=== PATIENT | female | born 1935 | race Caucasian/White ===

== ENCOUNTER 2020-08-29 06:28 | Day surgery (SDC) | payer MEDICARE, BC ==
[~2020-08-29] VITALS: Ht 147.3 cm; Wt 51.8 kg
[~2020-08-29 06:28] MED LIST: ALLEGRA ALLERG180 M1 PO; ALLEGRA ALLERG180 MG PO; ASPI81CH PO; Amoxicillin500 MG PO; Avapro300 MG PO; CALCAVITDA PO; CENTRUM SILVER1 EAC2 PO; CLEM1.34; CODE30 PO; Caffeine200 MG PO; ERGO400 PO; ESTROGEN-METHY1 EAC1; FLUT44OIA; FLUT44OIA INH; GUAI120S1 PO; LEVOFLOXACIN750 MG PO; MAGCHL64ER PO; PREG75 PO; PROG100 PO; TRAZ50 PO; URSODIOL500 MG PO; VITA25000 PO; VITAMIN D400 UNI1 PO; ZINC15 PO
== END 2020-08-29 08:20 | disposition home or self-care (01) ==
LOC: ORSCSDS 06:28
PROVIDERS: Orthopaedic Surgery
PROC: 0LB70ZZ Excision of Right Hand Tendon, Open Approach (ICD-10-PCS; principal; 2020-08-29 07:30)
DX: M67.441 Ganglion, right hand (principal); I10 Essential (primary) hypertension; Z79.899 Other long term (current) drug therapy
CPT/HCPCS: J0690; J2250; J2704; J3010

== ENCOUNTER 2021-11-24 15:59 | Inpatient (IN) | payer MEDICARE, BC ==
[~2021-11-24] VITALS: Ht 144.8 cm; Wt 51.8 kg
[2021-11-24 16:36] LABS: BASOPHILS ABSOLUTE AUTO 0.04 K/mm3 (0.00-0.23); BASOPHILS PERCENT AUTO 0 % (0-2); EOSINOPHILS ABSOLUTE AUTO 0.01 K/mm3 (0.00-0.68); EOSINOPHILS PERCENT AUTO 0 % (0-6); Hemoglobin 11.5 g/dL (11.5-16.0); IMMATURE GRAN ABSOLUTE AUTO 0.11 K/mm3 (0.00-0.10); IMMATURE GRAN PERCENT AUTO 1 % (0-1); LYMPHOCYTES ABSOLUTE AUTO 1.34 K/mm3 (0.84-5.20); LYMPHOCYTES PERCENT AUTO 6 % (21-46); MONOCYTES ABSOLUTE AUTO 1.58 K/mm3 (0.16-1.47); MONOCYTES PERCENT AUTO 7 % (4-13); Mean Corpuscular HGB 23.9 pg (26.0-34.0); Mean Corpuscular HGB Conc 31.1 g/dL (31.5-36.5); Mean Corpuscular Volume 77 fL (80-100); Mean Platelet Volume 10.4 fL (9.1-12.4); NEUTROPHILS PERCENT AUTO 86 % (41-73); Platelet Count 606 K/mm3 (150-400); RDW Standard Deviation 41.2 fL (35.1-46.3); Red Blood Cell Count 4.82 M/mm3 (3.80-5.20); White Blood Cell Count 22.08 K/mm3 (4.00-11.30)
[2021-11-24 16:56] LABS: Alanine Aminotransfer (ALT/SGP 37 U/L (12-78); Albumin, Blood 3.1 g/dL (3.4-5.0); Albumin/Globulin Ratio 0.6 (0.8-1.8); Alk Phos 91 U/L (50-136); Anion Gap 3 mmol/L (6-16); Aspartate Aminotrans (AST/SGOT 31 U/L (12-37); Bilirubin, Total 0.3 mg/dL (0.1-1.0); Blood Urea Nitrogen 18 mg/dL (8-24); Bun/Creatinine Ratio 27.3 (12.0-20.0); CO2, Blood 27 mmol/L (21-32); Calcium, Blood 9.8 mg/dL (8.5-10.1); Chloride, Blood 99 mmol/L (98-108); Creatinine, Blood 0.66 mg/dL (0.40-1.00); Globulin, Blood 4.8 g/dL (2.2-4.0); Glomerular Filtration Rate >60 (60-); Glucose, Blood 169 mg/dL (70-99); Potassium, Blood 4.4 mmol/L (3.5-5.5); Sodium, Blood 129 mmol/L (136-145); Total Protein, Blood 7.9 g/dL (6.4-8.2)
[2021-11-24 17:09] LABS: Source, Urine Voided
[2021-11-24 17:12] LABS: Appearance, Urine Hazy (Clear); Bilirubin, Urine Neg (Neg); Blood, Urine 2+ (Neg); Color, Urine Yellow (P-Yellow); Glucose Qualitative, Urine Neg (Neg); Ketones, Urine Neg (Neg); Leukocyte Esterase, Urine 1+ (Neg); Nitrite, Urine Neg (Neg); Protein, Urine 2+ (Neg); Specific Gravity, Urine 1.015 (1.003-1.022); Urobilinogen, Urine NORM (Normal)
[2021-11-24 17:27] LABS: Bacteria Mod /hpf; Squamous Epithelial Cells Few /hpf (Few)
[2021-11-24] MEDS ORDERED: PREG150 PO (21:38)
[2021-11-24] MEDS ORDERED: MIRALAX17 GM PO (21:39)
[2021-11-25 05:04] LABS: BASOPHILS ABSOLUTE AUTO 0.05 K/mm3 (0.00-0.23); BASOPHILS PERCENT AUTO 0 % (0-2); EOSINOPHILS ABSOLUTE AUTO 0.01 K/mm3 (0.00-0.68); EOSINOPHILS PERCENT AUTO 0 % (0-6); Hematocrit 37.3 % (33.0-51.0); Hemoglobin 11.2 g/dL (11.5-16.0); IMMATURE GRAN ABSOLUTE AUTO 0.13 K/mm3 (0.00-0.10); IMMATURE GRAN PERCENT AUTO 1 % (0-1); LYMPHOCYTES ABSOLUTE AUTO 1.63 K/mm3 (0.84-5.20); LYMPHOCYTES PERCENT AUTO 7 % (21-46); MONOCYTES ABSOLUTE AUTO 1.83 K/mm3 (0.16-1.47); MONOCYTES PERCENT AUTO 8 % (4-13); Mean Corpuscular HGB 23.9 pg (26.0-34.0); Mean Corpuscular Volume 80 fL (80-100); Mean Platelet Volume 10.7 fL (9.1-12.4); NEUTROPHILS ABSOLUTE AUTO 18.88 K/mm3 (1.96-9.15); NEUTROPHILS PERCENT AUTO 84 % (41-73); Platelet Count 590 K/mm3 (150-400); RDW Coefficient Variation 15.2 % (11.7-14.2); RDW Standard Deviation 43.9 fL (35.1-46.3); Red Blood Cell Count 4.68 M/mm3 (3.80-5.20); White Blood Cell Count 22.53 K/mm3 (4.00-11.30)
--- NOTE | 2021-11-25 05:07 | NUR ---
SHIFT SUMMARY PT ER ADMIT THIS SHIFT FOR SBO. WHILE IN ER THERE WERE THREE UNSUCESSFUL ATTEMPTS AT NG TUBE PLACEMENT. PT AT THIS TIME IS REFUSING ADDITIONAL ATTEMPTS FOR NG TUBE PLACEMENT. ABD IS FIRM AND DISTENDED, NONTENDER. BOWEL TONES HYPOACTIVE X4 QUADRANTS. PT HAS HAD INTERMITTENT NAUSEA AND PAIN T/O SHIFT. MEDICATED PER EMAR WITH EFFECT. THERE HAS BEEN NO VOMITTING SINCE ADMISSION. SUGICAL CONSULT IN PLACE. PT NPO AT THIS TIME. VITAL ARE STABLE. BED IN LOWEST POSITION, CALL LIGHT WITHIN REACH.
[2021-11-25 05:08] LABS: International Normalized Ratio 1.14; Prothrombin Time Results 11.9 Sec (9.7-11.5)
[2021-11-25 05:36] LABS: Alanine Aminotransfer (ALT/SGP 32 U/L (12-78); Albumin, Blood 2.8 g/dL (3.4-5.0); Albumin/Globulin Ratio 0.7 (0.8-1.8); Alk Phos 77 U/L (50-136); Anion Gap 6 mmol/L (6-16); Aspartate Aminotrans (AST/SGOT 33 U/L (12-37); Bilirubin, Total 0.4 mg/dL (0.1-1.0); Blood Urea Nitrogen 18 mg/dL (8-24); Bun/Creatinine Ratio 23.1 (12.0-20.0); CO2, Blood 27 mmol/L (21-32); Calcium, Blood 9.7 mg/dL (8.5-10.1); Chloride, Blood 102 mmol/L (98-108); Creatinine, Blood 0.78 mg/dL (0.40-1.00); Globulin, Blood 4.3 g/dL (2.2-4.0); Glomerular Filtration Rate >60 (60-); Glucose, Blood 121 mg/dL (70-99); Magnesium, Blood 2.1 mg/dL (1.6-2.4); Potassium, Blood 4.6 mmol/L (3.5-5.5); Sodium, Blood 135 mmol/L (136-145); Total Protein, Blood 7.1 g/dL (6.4-8.2)
[2021-11-25 10:13] LABS: Influenza A, PCR NEGATIVE (NEGATIVE); Influenza B, PCR NEGATIVE (NEGATIVE); Resp Syncytial Virus, PCR NEGATIVE (NEGATIVE); SARS-Cov-2 (COVID-19) PCR, MMC NEGATIVE (NEGATIVE)
--- NOTE | 2021-11-25 12:41 | NUR ---
11/25/21 1241 Evette Jiang TAP BLOCK ADMINISTERED BY INTRAOPERATIVELY. PATIENT TOLERATED WELL. SEE ANESTHESIA NOTES
--- NOTE | 2021-11-25 18:52 | NUR ---
SHIFT SUMMARY A&OX4, VSS/RA, BIOX ON, S/P SHYAM COLECTOMY, RIDGE WNL/CDI, PAIN MANAGED WITH 12.5 MG FENT, LR @ 100 MLS/HR, DENIES N&V, AUNDREA ICE CHIPS. PIERRE PATENT & DRAINING YELLOW URINE, STAT LOCK ON, OFF FLOOR. REPOSITIONS WELL WITH ASSIST. WILL REPORT TO ONCOMING NOC RN.
[2021-11-26 04:29] LABS: Hematocrit 35.9 % (33.0-51.0); Hemoglobin 10.6 g/dL (11.5-16.0); Mean Corpuscular HGB 23.8 pg (26.0-34.0); Mean Corpuscular HGB Conc 29.5 g/dL (31.5-36.5); Mean Corpuscular Volume 81 fL (80-100); Mean Platelet Volume 10.2 fL (9.1-12.4); Platelet Count 502 K/mm3 (150-400); RDW Coefficient Variation 15.3 % (11.7-14.2); RDW Standard Deviation 44.6 fL (35.1-46.3); Red Blood Cell Count 4.45 M/mm3 (3.80-5.20); White Blood Cell Count 24.53 K/mm3 (4.00-11.30)
[2021-11-26 04:52] LABS: BAND PERCENT MAN 13 % (0-8); BASOPHILS PERCENT MAN 0 % (0-2); EOSINOPHILS PERCENT MAN 0 % (0-6); LYMPHOCYTES ABSOLUTE MAN 0.24 K/mm3 (0.84-5.20); LYMPHOCYTES PERCENT MAN 1 % (21-46); MONOCYTES ABSOLUTE MAN 1.22 K/mm3 (0.16-1.47); MONOCYTES PERCENT MAN 5 % (4-13); NEUTROPHILS ABSOLUTE MAN 23.05 K/mm3 (1.96-9.15); SEG NEUTROPHILS PERCENT MAN 81 % (41-73); TOTAL CELLS COUNTED 100
[2021-11-26 04:58] LABS: Albumin, Blood 2.3 g/dL (3.4-5.0); Anion Gap 7 mmol/L (6-16); Blood Urea Nitrogen 26 mg/dL (8-24); Bun/Creatinine Ratio 26.1 (12.0-20.0); CO2, Blood 24 mmol/L (21-32); Calcium, Blood 8.6 mg/dL (8.5-10.1); Chloride, Blood 109 mmol/L (98-108); Glomerular Filtration Rate 53 (60-); Glucose, Blood 152 mg/dL (70-99); Phosphorus, Blood 4.6 mg/dL (2.5-4.9); Potassium, Blood 4.9 mmol/L (3.5-5.5); Sodium, Blood 140 mmol/L (136-145)
--- NOTE | 2021-11-26 06:21 | NUR ---
SHIFT SUMMARY A/OX 2-3. POD1 SHYAM COLECTOMY, RIDGE DRESSING INTACT, 2 SMALL AMOUNTS OF RED DRIED DRAINAGE ON MIDLINE, BOWEL TONES ACTIVE. VITAL SIGNS STABLE. PIERRE IN PLACE, DRAINING TO GRAVITY. TOLERATING ICE CHIPS- NO N/V. CONT BIOX IN PLACE. INCREASE IN RESPIRATIONS THIS SHIFT, PT ABLE TO COUGH UP SOME SECRETIONS AND BREATHING APPEARED TO IMPROVE- RESPIRATIONS 18-20, ON 2L O2 AT 99%. IV PAIN MEDICATION GIVEN. WILL CONTINIUE TO MONITOR AND REPORT ONCOMING RN.
--- NOTE | 2021-11-26 17:53 | NUR ---
SHIFT SUMMARY A&O X3, FORGETS WHERE SHE IS OFTEN. VSS, ON 2L NC. MIDLINE ABD INCISION W/ RIDGE IN PLACE, C/D/I. PT HAS STRUGGLED W/ PAIN MANAGMENT, REPORTS HER PAIN TO BE 2-3/10 T/O SHIFT AND REQUESTS PAIN MEDICATION CONSISTENTLY. PIERRE REMAINS IN PLACE D/T PATIENT REPORTING BEING "TOO PAINFUL TO MOVE". ENCOURAGED MOBILITY T/O SHIFT, PATIENT DECLINES UNTIL THERAPY WORKS W/ HER. PATIENT APPEARS TO BE FIXATED ON HER PAIN MEDICATION "DUE TIMES" SHE IS MAKING LISTS AND CONTINTUES TO SAY HER MEDICATION IS DUE AND SHE NEEDS IT, WHILE SHE IS READING HER LIST OF TIMES SHE HAS RECIEVED MEDICATIONS. LUNGS CONTINUE TO SOUND COURSE T/O SHIFT. ENCOURAGED TO DEEP BREATH, COUGH, & USE IS. FAMILY AT BEDSIDE T/O AFTERNOON, REPORTS PT TO BE "LOOPY" & "NOT HER NORMAL SELF". CONTINUE TO EDUCATE ON PAIN MEDICATION. WILL REPORT TO ONCOMING RN.
[2021-11-27 04:20] LABS: Hematocrit 30.9 % (33.0-51.0); Hemoglobin 9.1 g/dL (11.5-16.0); Mean Corpuscular HGB 23.7 pg (26.0-34.0); Mean Corpuscular HGB Conc 29.4 g/dL (31.5-36.5); Mean Corpuscular Volume 81 fL (80-100); Mean Platelet Volume 10.3 fL (9.1-12.4); Platelet Count 347 K/mm3 (150-400); RDW Coefficient Variation 15.3 % (11.7-14.2); RDW Standard Deviation 44.6 fL (35.1-46.3); Red Blood Cell Count 3.84 M/mm3 (3.80-5.20); White Blood Cell Count 17.38 K/mm3 (4.00-11.30)
[2021-11-27 04:41] LABS: Albumin, Blood 2.2 g/dL (3.4-5.0); Anion Gap 4 mmol/L (6-16); Blood Urea Nitrogen 28 mg/dL (8-24); Bun/Creatinine Ratio 35.9 (12.0-20.0); CO2, Blood 26 mmol/L (21-32); Calcium, Blood 9.3 mg/dL (8.5-10.1); Chloride, Blood 114 mmol/L (98-108); Creatinine, Blood 0.78 mg/dL (0.40-1.00); Glomerular Filtration Rate >60 (60-); Glucose, Blood 93 mg/dL (70-99); Phosphorus, Blood 3.6 mg/dL (2.5-4.9); Potassium, Blood 4.5 mmol/L (3.5-5.5); Sodium, Blood 144 mmol/L (136-145)
--- NOTE | 2021-11-27 06:14 | NUR ---
SHIFT SUMMARY A/O X3-4, POD2 HEMICOLECTOMY. RIDGE MIDLINE IN PLACE, 2 SPOTS OF DRIED RED DRAINAGE, INTACT. MINIMAL ABDOMINAL DISTENTION. PAIN REPORTED AT BEGINING OF SHIFT 11/01, MEDICATED WITH PO PAIN MEDICATION AND PATIENT RESTED WELL THROUGHOUT THE NIGHT. VITAL SIGNS STABLE. APPEARS MORE ALERT THIS SHIFT, LESS CONFUSION. REPOSITIONED Q2H. PIERRE DRAINING TO GRAVITY. TOLERATING SIPS AND CHIPS, NO REPORTS OF N/V. NO FLATUS OR BOWEL MOVEMENT AT THIS TIME. WILL CONTINUE TO MONITOR AND REPORT TO ONCOMING RN.
--- NOTE | 2021-11-27 16:07 | NUR ---
SHIFT SUMMARY PT POD #2 FOR HEMICOLECTOMY. RIDGE DRESSING AT MIDLINE WITH MINIMAL DRAINAGE, DRY AND INTACT. NO GAS OR BM THIS SHIFT. PT SLEPT WELL LAST NIGHT AND HAS BEEN VERY SLEEPY TODAY. SHE WAS ABLE TO WORK WITH PHYSICAL THERAPY AND GOT UP TO A RECLINER BUT HAS BEEN SLEEPING THE MAJORITY OF THE SHIFT. SHE IS AROUSABLE BUT FAIRLY DISORIENTED WHEN SHE WAKES UP. SHE REMAINS ON 2 LITERS OF O2. VSS.
[2021-11-28 05:32] LABS: BASOPHILS ABSOLUTE AUTO 0.02 K/mm3 (0.00-0.23); BASOPHILS PERCENT AUTO 0 % (0-2); EOSINOPHILS PERCENT AUTO 0 % (0-6); Hematocrit 32.3 % (33.0-51.0); Hemoglobin 9.3 g/dL (11.5-16.0); IMMATURE GRAN ABSOLUTE AUTO 0.06 K/mm3 (0.00-0.10); IMMATURE GRAN PERCENT AUTO 1 % (0-1); LYMPHOCYTES ABSOLUTE AUTO 0.87 K/mm3 (0.84-5.20); LYMPHOCYTES PERCENT AUTO 7 % (21-46); MONOCYTES ABSOLUTE AUTO 0.91 K/mm3 (0.16-1.47); MONOCYTES PERCENT AUTO 7 % (4-13); Mean Corpuscular HGB 23.5 pg (26.0-34.0); Mean Corpuscular HGB Conc 28.8 g/dL (31.5-36.5); Mean Corpuscular Volume 82 fL (80-100); NEUTROPHILS ABSOLUTE AUTO 11.24 K/mm3 (1.96-9.15); NEUTROPHILS PERCENT AUTO 86 % (41-73); Platelet Count 341 K/mm3 (150-400); RDW Coefficient Variation 15.4 % (11.7-14.2); RDW Standard Deviation 46.4 fL (35.1-46.3); Red Blood Cell Count 3.95 M/mm3 (3.80-5.20)
[2021-11-28 06:02] LABS: Anion Gap 5 mmol/L (6-16); Blood Urea Nitrogen 28 mg/dL (8-24); Bun/Creatinine Ratio 36.4 (12.0-20.0); CO2, Blood 26 mmol/L (21-32); Calcium, Blood 9.5 mg/dL (8.5-10.1); Chloride, Blood 117 mmol/L (98-108); Creatinine, Blood 0.77 mg/dL (0.40-1.00); Glomerular Filtration Rate >60 (60-); Glucose, Blood 79 mg/dL (70-99); Magnesium, Blood 2.2 mg/dL (1.6-2.4); Phosphorus, Blood 3.6 mg/dL (2.5-4.9); Potassium, Blood 4.5 mmol/L (3.5-5.5); Sodium, Blood 148 mmol/L (136-145)
--- NOTE | 2021-11-28 06:45 | NUR ---
SUMMARY NO NEW ISSUES NOTED. PT PAIN MANAGED WELL PER EMAR. PT REMAINS PLESANTLY CONFUSED AND COOPERATIVE. PT HAS SLEPT T/OUT SHIFT. PT CURRENTLY SLEEPING IN NO DISTRESS.
--- NOTE | 2021-11-28 14:38 | NUR ---
CALLED DR. ENRIQUEZ ABOUT THE PATIENT. STATING THAT SHE IS COUGHING UP THICK WHITE/CLEAR SPUTUM AND SEEMS SHORT OF BREATH. PATIENT CAN BARELY USE THE FLUTTER VALVE LET ALONE THE INCENTIVE SPIROMETER. DR. ENRIQUEZ ORDERED RT TREATMENT FOR HER. RT IS IN THE ROOM NOW TO GIVE TREATMENT. BIOX IS IN PLACE. CALL LIGHT WITHIN REACH.
--- NOTE | 2021-11-28 17:00 | NUR ---
Pt resting in recliner chair upon arrival. This RN accompanied by student nurse Shena. Pt is pleasantly confused and appears lethargic. Pt's Shaun and Pt's son at bedside. 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 Pt drifts off to sleep and conversation continued with family. Shaun reports just Pt and himself at home but have adequate support with son and daughter in law. Family reports knowing about the cancer for a few weeks now and Pt's plan is to have cancer treated if treatment is available. Continued therapeutic listening. Engaged in therapeutic discussion regarding Pt's POLST on file vs current code status. Current code status is Full Code and Pt's wishes on POLST are No CPR and ok with intubation. Educated on life sustaining treatment including risk factors and implications of CPR. After further discussion spouse and son report they would like to follow wishes on Pt's POLST. Family expresses appreciation and report no other concerns at this time. Spoke with Dr Moody and discussed case. Placed order for Pt's code status to be limited with providing intubationn only per V/O from Dr Moody. This aligns with Pt's wishes on POLST. Palliative Care will remain available.
[2021-11-29 04:47] LABS: Hematocrit 32.9 % (33.0-51.0); Hemoglobin 9.4 g/dL (11.5-16.0); Mean Corpuscular HGB 23.6 pg (26.0-34.0); Mean Corpuscular HGB Conc 28.6 g/dL (31.5-36.5); Mean Corpuscular Volume 83 fL (80-100); Mean Platelet Volume 10.8 fL (9.1-12.4); Platelet Count 303 K/mm3 (150-400); RDW Coefficient Variation 15.6 % (11.7-14.2); RDW Standard Deviation 46.9 fL (35.1-46.3); Red Blood Cell Count 3.99 M/mm3 (3.80-5.20)
[2021-11-29 05:18] LABS: Albumin, Blood 2.2 g/dL (3.4-5.0); Anion Gap 6 mmol/L (6-16); Blood Urea Nitrogen 25 mg/dL (8-24); Bun/Creatinine Ratio 36.1 (12.0-20.0); CO2, Blood 27 mmol/L (21-32); Chloride, Blood 111 mmol/L (98-108); Creatinine, Blood 0.69 mg/dL (0.40-1.00); Glomerular Filtration Rate >60 (60-); Glucose, Blood 180 mg/dL (70-99); Phosphorus, Blood 2.5 mg/dL (2.5-4.9); Potassium, Blood 3.6 mmol/L (3.5-5.5); Sodium, Blood 144 mmol/L (136-145)
--- NOTE | 2021-11-29 09:17 | NUR ---
CALLED DR. ENRIQUEZ ABOUT PATIENT SAYING THAT THERE ARE CONCERNS OF HER NOT BEING ABLE TO BREATH WELL. ALSO TALKED WITH RESPIRATORY THERAPY THEY AGREED THAT SHE LOOKS WORSE THAN YESTERDAY. PATIENT CAN BARELY STAY AWAKE TO ANSWER YES/NO QUESTIONS. PATIENT DID STATE THAT SHE IS HAVING A HARD TIME BREATHING AND "DOESN'T FEEL GOOD". DR. ENRIQUEZ SAID THAT SHE WOULD ORDER LASIX AND WILL COME SEE THE PATIENT. PALLIATIVE CARE HAS BEEN NOTIFIED WELL. PATIENT IS LAYING IN BED AND IS SWEATY ON THE FACE. CALL LIGHT WITHIN REACH.
--- NOTE | 2021-11-29 11:29 | NUR ---
Received referral from nurse home care companion (Marybel Lucas) on 11/26/2021. Patient is to discharge with orders for home health and elected [facility]. Met with patient and patient's to further discuss the above. Patient and are agreeable to the above. Discussed homebound status definition with patient and . Patient and verbalized understanding. Discussed what home health is vs what it is not (in home caregivers/housekeeping). Patient and verbalized understanding. Discussed the next steps in the process of an initial assessment to determine frequency of visits. Again patient and verbalized understanding. Offered a chance for patient and to ask questions regarding the above of which there were none. At this time patient has no discharge orders entered. Will continue to monitor and follow for discharge. Tari Mera Referral Liaison
--- NOTE | 2021-11-29 12:33 | NUR ---
Pt resting in bed upon arrival. Assisted CLEANING AND WASHING EQUIPMENT OPERATOR with scooting Pt up in bed. Pt drifts off to sleep quickly. Pt appears comfortable with no S/S of distress at this time. Pt appears weak and frail. Pt's Shaun at bedside. Offered supportive visit for Shaun and therapeutic listening. Listened as Shaun report being hopefull but understands that Pt may not do well. Validated concerns and continued therapeutic listening. Shaun expresses appreciation and is agreeable for continued supportive visits. Spoke with Primary RN Tatiana, discussed case and concerns. Spoke with Dr Moody and discussed case. Palliative Care will remain available.
--- NOTE | 2021-11-29 19:05 | NUR ---
DIET ORDER CONFIRMED WITH DR. CHERRY THAT [facility] SOFT DIET IS OK FOR THIS PATIENT.
--- NOTE | 2021-11-29 19:06 | NUR ---
SHIFT SUMMARY POD4 R SHYAM COLECTOMY, A/O TO SELF, ANSWERS QUESTIONS APPROPRIATELY, FAMILY AT BEDSIDE T/O THE SHIFT, POWERGLIDE INSERTED FOR PARENTAL NUTRITION WHICH WAS ALSO STARTED THIS SHIFT TO SUPPLEMENT NUTRIENT NEEDS. PT ABLE TO ROLL DURING ATTENDS CHANGES BUT IS VERY WEAK, OCCASIONAL COUGH. ST PERFORMED SWALLOW EVALUATION AND APPROVED HER FOR [facility] SOFT WHICH WAS CONFIRMED WITH GENERAL SURGERY. NO ACUTE EVENTS THIS SHIFT, CALL LIGHT IN REACH, REPORT GIVEN TO VALERIE RN.
[2021-11-30 04:10] LABS: BASOPHILS ABSOLUTE AUTO 0.01 K/mm3 (0.00-0.23); BASOPHILS PERCENT AUTO 0 % (0-2); EOSINOPHILS ABSOLUTE AUTO 0.09 K/mm3 (0.00-0.68); EOSINOPHILS PERCENT AUTO 1 % (0-6); Hematocrit 29.2 % (33.0-51.0); Hemoglobin 8.5 g/dL (11.5-16.0); IMMATURE GRAN ABSOLUTE AUTO 0.04 K/mm3 (0.00-0.10); IMMATURE GRAN PERCENT AUTO 0 % (0-1); LYMPHOCYTES ABSOLUTE AUTO 0.91 K/mm3 (0.84-5.20); LYMPHOCYTES PERCENT AUTO 9 % (21-46); MONOCYTES ABSOLUTE AUTO 1.01 K/mm3 (0.16-1.47); MONOCYTES PERCENT AUTO 10 % (4-13); Mean Corpuscular HGB 23.2 pg (26.0-34.0); Mean Corpuscular HGB Conc 29.1 g/dL (31.5-36.5); Mean Corpuscular Volume 80 fL (80-100); Mean Platelet Volume 10.7 fL (9.1-12.4); NEUTROPHILS ABSOLUTE AUTO 7.85 K/mm3 (1.96-9.15); NEUTROPHILS PERCENT AUTO 79 % (41-73); Platelet Count 244 K/mm3 (150-400); RDW Coefficient Variation 15.6 % (11.7-14.2); RDW Standard Deviation 45.3 fL (35.1-46.3); Red Blood Cell Count 3.66 M/mm3 (3.80-5.20); White Blood Cell Count 9.91 K/mm3 (4.00-11.30)
[2021-11-30 04:32] LABS: Alanine Aminotransfer (ALT/SGP 47 U/L (12-78); Albumin/Globulin Ratio 0.6 (0.8-1.8); Alk Phos 69 U/L (50-136); Anion Gap 4 mmol/L (6-16); Aspartate Aminotrans (AST/SGOT 50 U/L (12-37); Bilirubin, Total 0.3 mg/dL (0.1-1.0); Blood Urea Nitrogen 22 mg/dL (8-24); Bun/Creatinine Ratio 34.3 (12.0-20.0); CO2, Blood 31 mmol/L (21-32); Calcium, Blood 8.6 mg/dL (8.5-10.1); Chloride, Blood 108 mmol/L (98-108); Creatinine, Blood 0.64 mg/dL (0.40-1.00); Globulin, Blood 3.2 g/dL (2.2-4.0); Glomerular Filtration Rate >60 (60-); Glucose, Blood 132 mg/dL (70-99); Magnesium, Blood 1.6 mg/dL (1.6-2.4); Phosphorus, Blood 2.6 mg/dL (2.5-4.9); Potassium, Blood 3.8 mmol/L (3.5-5.5); Sodium, Blood 143 mmol/L (136-145); Total Protein, Blood 5.2 g/dL (6.4-8.2); Triglycerides 106 mg/dL (30-160)
--- NOTE | 2021-11-30 04:38 | NUR ---
SUMMARY NO NEW ISSUES NOTED. PT HAS SLEPT T/OUT SHIFT. PT S BREATHING EASIER THIS SHIFT. PT IS MORE ALERT. PT CURRENTLY SLEEPING AND IN NO DISTRES. CALL LIGHT IN REACH.
--- NOTE | 2021-11-30 18:52 | NUR ---
SHIFT SUMMARY 5 DAYS S/P HEMICOLECTOMY. A&OX4. VSS. POWERGLIDE IRVIN INFUSING TPN 75ML/HR. DIET ADVANCED TO SMALL BITES PER ST; TOLERATING WELL, INTAKE HAS IMPROVED. BM X3 TODAY; SMALL, BROWN AND FORMED. BEDSIDE COMMODE AND WEARING BRIEFS. TRANSFERS WITH FWW AND PIVOT TO BEDSIDE. RIDGE DRESSING REMOVED AND CHANGED TO GAUZE AND TEGEDERM IN MORNING SHIFT CHANGED DUE TO EXCESS DRAINAGE; CHANGED 4X TOTAL T/O SHIFT. PAIN CONTROLLED WITH TRAMADOL 25MG GIVEN ONCE DURING SHIFT. 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 FAMILY AWAITING RESULTS OF ABD MASS/US. AND DIL AT BEDSIDE MOST OF SHIFT. MEPILEX ON COCCYX, CHANGED ONCE; SKIN RED AND FRAGIL; REPOSITIONED SIDE/SIDE, UP IN CHAIR. OXYGEN VIA NC 2L/MIN. BILAT SCDS ON. REPORT PROVIDED TO KALI HERNANDEZ.
--- NOTE | 2021-11-30 19:29 | NUR ---
PT SAT ON SIDE OF BED FOR 75 MINUTES.
--- NOTE | 2021-12-01 07:35 | NUR ---
SHIFT SUMMARY PT APPEARS TO BE MORE ALERT AND STEADY LAST NIGHT. VSS. PT REPORTS ABD PAIN, PAIN MEDICATED WTIH ULTRAM X2 T/O SHIFT, REPORTS SOME RELIEF. PT TOLERATION PO INTAKE, DENIES N/V. PT TAKES MED WHOLE. VOIDS ADEQUATELY, NO BM. PT RECIEVED ABX. TPN FOR NUTRITION. PT AMBULATES/ STAND AND PVOT IN BSC WITH FWW AND GB. CALL LIGHT WITHIN REACH. REPORT GIVENT TO DAY SHIFT NURSE.
--- NOTE | 2021-12-01 14:24 | NUR ---
Visit to pt and family. RN in room when I arrived repositioning pt. Pt first requested pillows on either side of her hips to float coccyx and then requested assist with using the commode. Pt is awake, alert, unsure of orientation as she was not verbalizing very much at all. She did shake her head no to if she had pain currently. She appears with nonverbal indicators to be having some discomfort with furrowed brow and grimacing, increased with me and DIL repositioning her and placing pillows under hips. Reported on visit and need for BSC use to nursing. Pal Care to cont to follow. Family reports that she has improved overall in past couple days. Pt appears very frail at this time.
--- NOTE | 2021-12-01 18:07 | NUR ---
SHIFT SUMMA[place] POD6 R SHYAM COLECTOMY, A/OX4 THOUGH SOMETIMES IS SLOW TO RESPONT/PUT WORDS TOGETHER, ABLE TO MAKE NEEDS KNOWN, TOLERATING PO, FAMILY HELPS WITH MEALS, TPN SUPPLEMENTING NUTRIENT NEEDS. ABD DRESSING CHANGED THIS SHIFT BY THIS RN WHILE DR DUMONT WAS AT BEDSIDE, SOME SEROUS DRAINAGE SEEPING OUT OF INCISION. DRESSING NOW HAS MODERATE AMOUNT OF DRAINAGE NOTED ON IT AND WILL BE CHANGED OUT AGAIN NEEDED, ABD BINDER IN PLACE TO HELP KEEP DRESSING IN PLACE. PT SPENT ABOUT HALF THE DAY IN THE CHAIR ALTERNATING BED TO CHAIR. NO ACUTE EVENTS THIS SHIFT, CALL LIGHT IN REACH, WILL CTM AND REPORT TO NOC RN.
[2021-12-02 06:14] LABS: BASOPHILS ABSOLUTE AUTO 0.02 K/mm3 (0.00-0.23); BASOPHILS PERCENT AUTO 0 % (0-2); EOSINOPHILS ABSOLUTE AUTO 0.25 K/mm3 (0.00-0.68); EOSINOPHILS PERCENT AUTO 2 % (0-6); Hematocrit 31.1 % (33.0-51.0); Hemoglobin 9.3 g/dL (11.5-16.0); IMMATURE GRAN ABSOLUTE AUTO 0.07 K/mm3 (0.00-0.10); IMMATURE GRAN PERCENT AUTO 1 % (0-1); LYMPHOCYTES ABSOLUTE AUTO 1.05 K/mm3 (0.84-5.20); LYMPHOCYTES PERCENT AUTO 8 % (21-46); MONOCYTES ABSOLUTE AUTO 1.19 K/mm3 (0.16-1.47); MONOCYTES PERCENT AUTO 9 % (4-13); Mean Corpuscular HGB 23.3 pg (26.0-34.0); Mean Corpuscular HGB Conc 29.9 g/dL (31.5-36.5); Mean Corpuscular Volume 78 fL (80-100); Mean Platelet Volume 11.3 fL (9.1-12.4); NEUTROPHILS PERCENT AUTO 80 % (41-73); Platelet Count 250 K/mm3 (150-400); RDW Coefficient Variation 15.8 % (11.7-14.2); RDW Standard Deviation 44.7 fL (35.1-46.3); White Blood Cell Count 12.98 K/mm3 (4.00-11.30)
[2021-12-02 06:31] LABS: Alanine Aminotransfer (ALT/SGP 55 U/L (12-78); Albumin, Blood 2.1 g/dL (3.4-5.0); Albumin/Globulin Ratio 0.6 (0.8-1.8); Alk Phos 80 U/L (50-136); Anion Gap 1 mmol/L (6-16); Aspartate Aminotrans (AST/SGOT 60 U/L (12-37); Bilirubin, Total 0.2 mg/dL (0.1-1.0); Blood Urea Nitrogen 21 mg/dL (8-24); Bun/Creatinine Ratio 41.3 (12.0-20.0); CO2, Blood 37 mmol/L (21-32); Calcium, Blood 8.7 mg/dL (8.5-10.1); Chloride, Blood 103 mmol/L (98-108); Creatinine, Blood 0.51 mg/dL (0.40-1.00); Globulin, Blood 3.3 g/dL (2.2-4.0); Glomerular Filtration Rate >60 (60-); Glucose, Blood 111 mg/dL (70-99); Magnesium, Blood 1.8 mg/dL (1.6-2.4); Potassium, Blood 4.7 mmol/L (3.5-5.5); Sodium, Blood 141 mmol/L (136-145); Total Protein, Blood 5.4 g/dL (6.4-8.2)
--- NOTE | 2021-12-02 17:06 | NUR ---
SHIFT SUMMARY POD 7 R SHYAM COLECTOMY. PT HAS BEEN PASSING FLATUS AND HAVING BOWEL MOVEMENTS. DRESSING REMAINS CDI, BINDER IN PLACE FOR COMFORT. PT HAS BEEN UP TO BSC FREQUENTLY T/O SHIFT. 1 MINIMAL ASSIST AT THIS TIME. SHE REPORTS FEELING MUCH BETTER THIS SHIFT. ON ROOM AIR WHILE AWAKE, 2L WHILE ASLEEP, SATS REMAIN GREATER THAN 92%.
[2021-12-03 04:16] LABS: BASOPHILS ABSOLUTE AUTO 0.06 K/mm3 (0.00-0.23); BASOPHILS PERCENT AUTO 1 % (0-2); EOSINOPHILS ABSOLUTE AUTO 0.29 K/mm3 (0.00-0.68); EOSINOPHILS PERCENT AUTO 2 % (0-6); Hematocrit 29.4 % (33.0-51.0); Hemoglobin 8.9 g/dL (11.5-16.0); IMMATURE GRAN ABSOLUTE AUTO 0.12 K/mm3 (0.00-0.10); IMMATURE GRAN PERCENT AUTO 1 % (0-1); LYMPHOCYTES ABSOLUTE AUTO 1.44 K/mm3 (0.84-5.20); LYMPHOCYTES PERCENT AUTO 11 % (21-46); MONOCYTES ABSOLUTE AUTO 1.16 K/mm3 (0.16-1.47); MONOCYTES PERCENT AUTO 9 % (4-13); Mean Corpuscular HGB Conc 30.3 g/dL (31.5-36.5); Mean Corpuscular Volume 76 fL (80-100); Mean Platelet Volume 11.4 fL (9.1-12.4); NEUTROPHILS ABSOLUTE AUTO 9.71 K/mm3 (1.96-9.15); NEUTROPHILS PERCENT AUTO 76 % (41-73); Platelet Count 236 K/mm3 (150-400); RDW Standard Deviation 43.4 fL (35.1-46.3); Red Blood Cell Count 3.87 M/mm3 (3.80-5.20); White Blood Cell Count 12.78 K/mm3 (4.00-11.30)
[2021-12-03 04:19] LABS: Alanine Aminotransfer (ALT/SGP 56 U/L (12-78); Albumin/Globulin Ratio 0.6 (0.8-1.8); Alk Phos 82 U/L (50-136); Anion Gap 4 mmol/L (6-16); Aspartate Aminotrans (AST/SGOT 56 U/L (12-37); Bilirubin, Total 0.3 mg/dL (0.1-1.0); Blood Urea Nitrogen 22 mg/dL (8-24); Bun/Creatinine Ratio 39.4 (12.0-20.0); CO2, Blood 32 mmol/L (21-32); Calcium, Blood 8.9 mg/dL (8.5-10.1); Chloride, Blood 104 mmol/L (98-108); Creatinine, Blood 0.56 mg/dL (0.40-1.00); Globulin, Blood 3.2 g/dL (2.2-4.0); Glomerular Filtration Rate >60 (60-); Glucose, Blood 115 mg/dL (70-99); Magnesium, Blood 1.8 mg/dL (1.6-2.4); Potassium, Blood 4.7 mmol/L (3.5-5.5); Sodium, Blood 140 mmol/L (136-145); Total Protein, Blood 5.2 g/dL (6.4-8.2)
--- NOTE | 2021-12-03 05:42 | NUR ---
SHIFT SUMMARY NO ACUTE CHANGES OVERNIGHT. TPN INFUSING. PT'S LUNGS SOUND COARSE BUT IMPROVED. INTERMITTENTLY COUGHING (DRY) ROBITUSSIN GIVEN LAST NIGHT. VOIDING ADEQUATELY. PT REPORTS TAILBONE PAIN. MEPLEX IN PLACED AND PAIN MANAGED WITH TYLENOL ONLY. REPOSITIONED Q2. ABX ADMINISTERED. AMBULATES IN THE BSC. S/P HEMICOLECTOMY WITH MIDLINE INCISION WITH ABD PAD AND TAPE. APPEARS TO HAVE MOD SS DRAINAGE. DRESSING CHANGED. EDEMA NOTED ON BILATERAL LOW EXT, NON PITTING. SCD IN PLACE. CALL LIGHT WITHIN REACH WILL PROVIDE REPORT TO ONCOMING NURSE
--- NOTE | 2021-12-03 17:02 | NUR ---
SHIFT SUMMARY: Patient has been tolerating regular diet well. Per dietitian PPN rate decreased. Has sat up in chair for all meals and up to BSC frequently. She requries one to two person assist for transfers. Pain has been well managed with Tylenol. Passing gas and having BMs. O2 weaned during day.
--- NOTE | 2021-12-04 06:30 | NUR ---
SHIFT SUMMARY NO ACUTE CHANGES TONIGHT EXCEPT FOR INCREASING EDEMA ON HER FEET. PITTING +2. PT ALSO HAS (CHRONIC) PRODUCTIVE COUGH, ROBITUSSIN GIVEN X2. LUNGS. LUNGS SOUND CLEAR. NO CRACKLES NOTED. PT DENIES SOB, O2 SATS OVER 95%. PT ON ROOM AIR ALL NIGHT. PT ALSO DENIES CHEST PAIN AND DIZZINESS. AMBULATES IN THE BSC, ATTENDS IN PLACE DUE TO FREQUENT URINATION AT NIGHT WHICH EXHAUST HER. PT ALSO APPEARS TO HAVE MORE JITTERY HANDS LAST NIGHT. PT'S DTR STATED THAT SHE GETS JITTERY WHEN SHE'S TIRED. SCD'S IN PLACE. BLE ELEVATED AT NIGHT. TPN STILL INFUSING. CALL LIGHT WITHIN REACH. WILL PROVIDE REPORT TO ONCOMING NURSE.
--- NOTE | 2021-12-04 17:40 | NUR ---
SHIFT SUMMARY: PT WORKED WITH PHYSICAL THERAPY AND IS EXPECTED TO DISCHARGE TO A SHELTER FACILITY TOMORROW. PT AMBULATED WELL WITH GOOD TOLERANCE. PT STILL HAS PPN RUNNING AND HER APPETITE HAS INCREASED. EATING WELL. SHE EXPRESSED INCREASED PAIN IN HER R ARM AND THE LOWER L SIDE OF HER BACK, NOTED. PAIN WAS MANAGED WITH TYLENOL. SEVERAL BMs.
--- NOTE | 2021-12-05 05:37 | NUR ---
BULK PICKER SUMMARY NO ACUTE CHANGES THIS SHIFT. PT AAOX4 AND PLEASANT. UP TO BATHROOM WITH 1 ASSIST AND FWW. PT AMBULATING MUCH BETTER COMPARED TO JUST A FEW DAYS AGO. MEDICATED FOR PAIN WITH TYLENOL PER EMAR. CONTINUES ON PPN, PLAN TO WEAN OFF LATER TODAY. PT COMPLAINED OF PAIN AND DISCOMFORT OF IRVIN POWERGLIDE. PT WOULD GRIMACE IN PAIN WHEN PG FLUSHED. REMOVED PER PT REQUEST. VSS, WILL CONTINUE TO MONITOR.
--- NOTE | 2021-12-05 08:28 | NUR ---
Received notification from nurse animal care supervisor (Shannan Lomax) that patient will be discharged to SNF. Notified [facility] sr. operations manager (Agnieszka Barron) of the above. No further interventions required. Tari Mera Referral Liaison
--- NOTE | 2021-12-05 18:35 | NUR ---
SHIFT SUMMARY PPN DISCONTINUED THIS MORNING. EATING WELL. INCREASING ACTIVITY TOLERANCE. WAITING FOR SNF APPROVAL.
--- NOTE | 2021-12-06 05:10 | NUR ---
HOSPICE COORDINATOR SUMMARY NO ACUTE CHANGES THIS SHIFT. PT AAOX4 AND PLEASANT. UP FREQUENTLY WITH 1 ASSIST TO BATHROOM TO URINATE. MIDLINE INCISION C/D/I. PT HAS NOT NEEDED PAIN MEDS TONIGHT. PT POSSIBLE DC PENDING INSURANCE APPROVAL FOR SNF. WILL CONTINUE TO MONITOR.
--- NOTE | 2021-12-06 18:14 | NUR ---
DISCHARGE SUMMARY PT A/O X3; PLEASANT AND COOPERATIVE WITH CARE. HARD OF HEARING. POD #10 FOR R HEMICOLECTOMY. MIDLINE INCISION WITH INDY CDI. NO C/O PAIN THIS SHIFT. WORKED WITH THERAPY TODAY AND IS TOLERATING PO INTAKE WELL. DISCHARGED TO [facility]. VSS. REPORT CALLED TO [facility] DEALER ACCOUNTS INVESTIGATOR.
== END 2021-12-06 18:47 | disposition home or self-care (01) | DRG 388 ==
LOC: ER 15:59 → SURS 19:55
PROVIDERS: Emergency Medicine; Internal Medicine; Nurse Practitioner Acute Care; Surgery; ADMIT Internal Medicine
DX: K56.609 Unspecified intestinal obstruction, unspecified as to partial versus complete obstruction (principal); E43 Unspecified severe protein-calorie malnutrition; J69.0 Pneumonitis due to inhalation of food and vomit; J96.01 Acute respiratory failure with hypoxia; I10 Essential (primary) hypertension; K21.9 Gastro-esophageal reflux disease without esophagitis; E78.1 Pure hyperglyceridemia; E86.0 Dehydration; Z20.822 Contact with and (suspected) exposure to COVID-19
CPT/HCPCS: 0241U; 36415; 71045; 74177; 80048; 80053; 80069; 81001; 82947; 83605; 83690; 83735; 84100; 84145; 84478; 84484; 85025; 85027; 85610; 85730; 87077; 87086; 87186; 88309; 88341; 88342; 92526; 92610; 93005; 93010; 93931; 94640; 94664; 94760; 94762; 96374; 96375; 97110; 97110-CQ; 97116; 97162; 97530; 99285-25; A9270; J0295; J0780; J1100; J1940; J2370; J2405; J2704; J3010; J3411; J7030; J7050; J7070; J7120; Q9967; U0003

== ENCOUNTER → 2022-04-18 | Outpatient (CLI) | payer MEDICARE, BC ==
[~2022-04-18] MED LIST changes: +MIRALAX17 GM PO; +PREG150 PO
== END | disposition home or self-care (01) ==
LOC: LAB SHORT 13:03 → LAB 13:03
DX: R05.9 Cough, unspecified (principal); R50.9 Fever, unspecified; Z92.25 Personal history of immunosuppression therapy
CPT/HCPCS: 87070; 87205

== ENCOUNTER → 2022-12-13 | Outpatient (CLI) | payer MEDICARE, BC ==
[2022-12-13 19:39] LABS: BASOPHILS ABSOLUTE AUTO 0.06 K/mm3 (0.00-0.23); BASOPHILS PERCENT AUTO 0 % (0-2); EOSINOPHILS ABSOLUTE AUTO 0.13 K/mm3 (0.00-0.68); EOSINOPHILS PERCENT AUTO 1 % (0-6); Hematocrit 39.2 % (33.0-51.0); Hemoglobin 11.9 g/dL (11.5-16.0); IMMATURE GRAN ABSOLUTE AUTO 0.06 K/mm3 (0.00-0.10); IMMATURE GRAN PERCENT AUTO 0 % (0-1); LYMPHOCYTES ABSOLUTE AUTO 1.31 K/mm3 (0.84-5.20); LYMPHOCYTES PERCENT AUTO 8 % (21-46); MONOCYTES ABSOLUTE AUTO 1.57 K/mm3 (0.16-1.47); MONOCYTES PERCENT AUTO 10 % (4-13); Mean Corpuscular HGB Conc 30.4 g/dL (31.5-36.5); Mean Corpuscular Volume 86 fL (80-100); Mean Platelet Volume 11.2 fL (9.1-12.4); NEUTROPHILS ABSOLUTE AUTO 13.33 K/mm3 (1.96-9.15); NEUTROPHILS PERCENT AUTO 81 % (41-73); Platelet Count 328 K/mm3 (150-400); RDW Coefficient Variation 15.4 % (11.7-14.2); RDW Standard Deviation 48.6 fL (35.1-46.3); Red Blood Cell Count 4.57 M/mm3 (3.80-5.20); White Blood Cell Count 16.46 K/mm3 (4.00-11.30)
[2022-12-13 20:39] LABS: Albumin, Blood 2.7 g/dL (3.4-5.0); Albumin/Globulin Ratio 0.6 (0.8-1.8); Bilirubin, Total 0.4 mg/dL (0.1-1.0); Bun/Creatinine Ratio 34.5 (12.0-20.0); Calcium, Blood 9.3 mg/dL (8.5-10.1); Creatinine, Blood 0.55 mg/dL (0.40-1.00); Globulin, Blood 4.6 g/dL (2.2-4.0); Percent Saturation 7.9 % (15.0-50.0); Potassium, Blood 4.3 mmol/L (3.5-5.5); Thyroid Stimulating Hormone 0.908 uIU/mL (0.360-4.800); Total Protein, Blood 7.3 g/dL (6.4-8.2)
== END | disposition home or self-care (01) ==
LOC: LAB SHORT 18:53
PROVIDERS: Internal Medicine
DX: I10 Essential (primary) hypertension (principal); E53.8 Deficiency of other specified B group vitamins; E55.9 Vitamin D deficiency, unspecified; E61.1 Iron deficiency; K74.3 Primary biliary cirrhosis; K74.60 Unspecified cirrhosis of liver; R63.4 Abnormal weight loss
CPT/HCPCS: 80053; 82105; 82306; 82607; 82728; 82746; 83540; 83550; 84443; 85025